=== PATIENT | male | born 1945 | race Caucasian/White ===

== ENCOUNTER 2017-10-24 11:41 | Inpatient (IN) | payer MEDICARE ==
[~2017-10-24] VITALS: Ht 180.3 cm; Wt 126.3 kg
[2017-10-24] MEDS ORDERED: MULTIVITAMIN1 CTB PO (12:03)
[2017-10-24] MEDS ORDERED: ASPIRIN 81M81 MG/TA2 PO (12:03)
[2017-10-24] MEDS ORDERED: GLUCOPHAGE500 MG/TAB PO (12:03)
[2017-10-24] MEDS ORDERED: DEMADEX 20MG20 M1 PO (12:04)
[2017-10-24] MEDS ORDERED: LIPITOR 80MG80 MG PO (12:04)
[2017-10-24] MEDS ORDERED: VITAMIN D31000 I1 PO (12:04)
[2017-10-24] MEDS ORDERED: ENTRESTO 49 MG1 EACH PO (12:05)
[2017-10-24] MEDS ORDERED: ELIQUIS 5MG PO (12:05)
[2017-10-24] MEDS ORDERED: JARDIANCE10 PO (12:05)
[2017-10-24 12:11] LABS: BASO % 0.5 % (0.0-2.0); EOS # 0.2 (0.0-0.7); EOS % 2.2 % (0-4.0); GRAN # 6.6 (1.4-6.5); GRAN % 75.7 % (42.2-75.2); HEMOGLOBIN 15.6 g/dl (13.5-18.0); LYMPH # 1.3 (1.2-3.4); LYMPH % 14.9 % (20.0-51.0); MEAN CELL VOLUME 99 fl (80.0-100.0); MEAN CORPUSCULAR HEMOGLOBIN 33 pg (27.0-31.0); MEAN CORPUSCULAR HGB CONC 34 g/dl (33.0-37.0); MEAN PLATELET VOLUME 11.3 fl (7.4-10.4); MONO # 0.5 (0.1-0.6); MONO % 6.2 % (1.7-9.3); PLATELET COUNT 147 K/mm3 (130-400); RED BLOOD COUNT 4.67 M/mm3 (4.20-5.60)
[2017-10-24] MEDS ORDERED: COREG 25MG25 MG/TAB PO ×2 (12:21→20:22)
[2017-10-24 12:23] LABS: ALBUMIN 4.2 gm/dL (3.5-5.0); BILIRUBIN,TOTAL 1.9 mg/dL (0.0-1.0); CALCIUM 8.9 mg/dL (8.4-10.2); CREATININE, serum 1.53 mg/dL (0.66-1.25); POTASSIUM 4.2 mmol/L (3.4-5.0); TOTAL PROTEIN 7.4 gm/dL (6.4-8.2)
[2017-10-24 12:32] LABS: INR 1.1 (0.8-3.0); PROTHROMBIN TIME 12.9 SECONDS (9.7-12.8)
[2017-10-24 12:34] LABS: PARTIAL THROMBOPLASTIN TIME 35.8 SECONDS (26.0-37.0)
[2017-10-24 12:36] LABS: TROPONIN-I 0.114 ng/mL (0.000-0.034)
[2017-10-24 12:52] LABS: THYROID STIMULATING HORMONE 0.137 uIU/mL (0.465-4.680)
[2017-10-24 20:09] VITALS: BP 128/85; PULSE 122; TEMP 98
[2017-10-25] VITALS (10 sets, daily range): BP systolic 94–126; BP diastolic 58–83; PULSE 69–123; TEMP 97.6–100.3
[2017-10-25 05:36] LABS: BASO % 0.4 % (0.0-2.0); EOS # 0.2 (0.0-0.7); GRAN # 5.7 (1.4-6.5); GRAN % 75.5 % (42.2-75.2); HEMATOCRIT 41.5 % (42.0-52.0); LYMPH # 1.1 (1.2-3.4); LYMPH % 14.5 % (20.0-51.0); MEAN CELL VOLUME 101 fl (80.0-100.0); MEAN CORPUSCULAR HEMOGLOBIN 33 pg (27.0-31.0); MEAN CORPUSCULAR HGB CONC 33 g/dl (33.0-37.0); MEAN PLATELET VOLUME 11.1 fl (7.4-10.4); MONO # 0.6 (0.1-0.6); MONO % 7.2 % (1.7-9.3); PLATELET COUNT 114 K/mm3 (130-400); RED BLOOD COUNT 4.11 M/mm3 (4.20-5.60); REDCELL DISTRIBUTION WIDTH-CV 14.2 % (11.5-14.5)
[2017-10-25 05:39] LABS: HEMOGLOBIN 13.5 g/dl (13.5-18.0)
[2017-10-25 05:46] LABS: CALCIUM 8.4 mg/dL (8.4-10.2); CHOLESTEROL RISK RATIO 3.7; CREATININE, serum 1.4 mg/dL (0.66-1.25); POTASSIUM 3.9 mmol/L (3.4-5.0)
[2017-10-25 05:57] LABS: TROPONIN-I 0.15 ng/mL (0.000-0.034)
[2017-10-26 00:34] VITALS: BP 111/55; PULSE 71; TEMP 99.7
[2017-10-26 04:04] VITALS: BP 109/51; PULSE 70; TEMP 98.8
[2017-10-26 06:09] LABS: BASO % 0.4 % (0.0-2.0); EOS # 0.1 (0.0-0.7); GRAN # 5.3 (1.4-6.5); GRAN % 72.6 % (42.2-75.2); HEMATOCRIT 37.4 % (42.0-52.0); HEMOGLOBIN 12.5 g/dl (13.5-18.0); LYMPH # 1.2 (1.2-3.4); LYMPH % 15.9 % (20.0-51.0); MEAN CELL VOLUME 100 fl (80.0-100.0); MEAN CORPUSCULAR HEMOGLOBIN 33 pg (27.0-31.0); MEAN CORPUSCULAR HGB CONC 33 g/dl (33.0-37.0); MEAN PLATELET VOLUME 11.3 fl (7.4-10.4); MONO # 0.7 (0.1-0.6); MONO % 9.8 % (1.7-9.3); PLATELET COUNT 103 K/mm3 (130-400); RED BLOOD COUNT 3.74 M/mm3 (4.20-5.60); REDCELL DISTRIBUTION WIDTH-CV 14.3 % (11.5-14.5)
[2017-10-26 06:27] LABS: CREATININE, serum 1.23 mg/dL (0.66-1.25); POTASSIUM 3.5 mmol/L (3.4-5.0)
[2017-10-26 08:41] VITALS: BP 110/54; PULSE 74; TEMP 98.2
[2017-10-26 11:58] LABS: MUCOUS Present /lpf; PH 5 (5-8); SQUAMOUS EPITHELIAL 0-2 /hpf; URINE APPEARANCE Clear; URINE BACTERIA None Seen /hpf; URINE BILIRUBIN Negative (NEGATIVE); URINE BLOOD Negative (NEGATIVE); URINE COLOR Yellow; URINE GLUCOSE 3+ (NEGATIVE); URINE KETONE Negative (NEGATIVE); URINE LEUKOCYTE ESTERASE Negative (NEGATIVE); URINE NITRATE Negative (NEGATIVE); URINE PROTEIN(semi-quant) Negative (NEGATIVE); URINE RBC 0-2 /hpf; URINE WBC 0-2 /hpf
[2017-10-26 12:02] LABS: COLLECTION METHOD CLEAN CATCH
[2017-10-26 12:19] VITALS: BP 112/55; PULSE 70; TEMP 98.2
[2017-10-26] MEDS ORDERED: COREG 25MG25 MG/TAB PO (13:41)
[2017-10-26] MEDS ORDERED: BETAPACE 120MG120 MG PO (13:42)
== END 2017-10-26 15:20 | disposition home or self-care (01) | DRG 309 ==
LOC: COL.ER 11:41 → ICU 15:18 → MEDICAL 10-25 13:30 → ICU 10-25 13:30 → MEDICAL 10-25 13:31
PROVIDERS: Family Medicine
PROC: 5A2204Z Restoration of Cardiac Rhythm, Single (ICD-10-PCS; principal; 2017-10-25)
DX: I48.92 Unspecified atrial flutter (principal); N17.9 Acute kidney failure, unspecified; I48.0 Paroxysmal atrial fibrillation; I25.5 Ischemic cardiomyopathy; I25.10 Atherosclerotic heart disease of native coronary artery without angina pectoris; E11.9 Type 2 diabetes mellitus without complications; D69.6 Thrombocytopenia, unspecified; Z95.1 Presence of aortocoronary bypass graft; Z95.5 Presence of coronary angioplasty implant and graft; Z95.810 Presence of automatic (implantable) cardiac defibrillator
CPT/HCPCS: OP; J1815; J2704; J7050

== ENCOUNTER → 2017-11-30 | Outpatient (CLI) | payer MEDICARE ==
[~2017-11-30] MED LIST: ASPIRIN 81M81 MG/TA2 PO; BETAPACE 120MG120 MG PO; COREG 25MG25 MG/TAB PO; DEMADEX 20MG20 M1 PO; ELIQUIS 5MG PO; ENTRESTO 49 MG1 EACH PO; GLUCOPHAGE500 MG/TAB PO; JARDIANCE10 PO; LIPITOR 80MG80 MG PO; MULTIVITAMIN1 CTB PO; VITAMIN D31000 I1 PO
== END ==
LOC: COL.RAD 13:37
DX: E05.90 Thyrotoxicosis, unspecified without thyrotoxic crisis or storm (principal)
CPT/HCPCS: A9516

== ENCOUNTER 2018-03-07 15:06 | Inpatient (IN) | payer MEDICARE ==
[~2018-03-07] VITALS: Wt 127.3 kg
[2018-03-07 17:56] LABS: BASO # 0.1 (0.0-0.2); BASO % 0.3 % (0.0-2.0); EOS # 0.6 (0.0-0.7); EOS % 3.9 % (0-4.0); GRAN # 12.3 (1.4-6.5); GRAN % 81.5 % (42.2-75.2); HEMATOCRIT 42.3 % (42.0-52.0); LYMPH # 1.1 (1.2-3.4); LYMPH % 7.5 % (20.0-51.0); MEAN CELL VOLUME 96 fl (80.0-100.0); MEAN CORPUSCULAR HEMOGLOBIN 32 pg (27.0-31.0); MEAN CORPUSCULAR HGB CONC 33 g/dl (33.0-37.0); MEAN PLATELET VOLUME 11.4 fl (7.4-10.4); MONO # 0.9 (0.1-0.6); MONO % 6.1 % (1.7-9.3); PLATELET COUNT 224 K/mm3 (130-400); RED BLOOD COUNT 4.41 M/mm3 (4.20-5.60)
[2018-03-07 18:06] LABS: ALBUMIN 3.6 gm/dL (3.5-5.0); BILIRUBIN,TOTAL 1.3 mg/dL (0.0-1.0); CALCIUM 8.9 mg/dL (8.4-10.2); CREATININE, serum 1.29 mg/dL (0.66-1.25); POTASSIUM 3.9 mmol/L (3.4-5.0)
[2018-03-07] MEDS ORDERED: PROAIR HFA0.09 MG/AC IH (18:13)
--- NOTE | 2018-03-07 18:44 | NUR ---
Admission assessment completed, alert/oriented, vital signs stable, denies pain, persistent cough for 6 weeks, we have placed him in 341 for negative isolation to r/o TB, right lung [place] coarse/ bases diminished, cough is non-productive, heart RRR/distal pulses are palpable, meds reconciled, allergies reviewed, IV started to left forearm, present in the room, he denies needs at this time
[2018-03-07 20:00] VITALS: BP 143/62; PULSE 72; TEMP 99.3
--- NOTE | 2018-03-07 20:00 | NUR ---
PT IN NEGATIVE PRESSURE ROOM. AIRBORNE ISOLATION. PT HAS PERSISTENT DRY HACKY COUGH. PT RELATES OCCASIONALLY HAS SPUTUM. TEMP 99.3 ORALLY. REVIEWED AND ORIENTED TO ROOM. CALL LIGHT IN REACH. INDEPENDENT IN ROOM. STEADY ON FEET.
[2018-03-07 21:00] VITALS: BP 143/62; PULSE 70; TEMP 99.3
[2018-03-08] VITALS (8 sets, daily range): BP systolic 96–135; BP diastolic 42–85; PULSE 61–100; TEMP 97.7–98.3
[2018-03-08 00:27] LABS: PROCALCITONIN 0.11 ng/mL (0.00-0.09)
--- NOTE | 2018-03-08 04:52 | NUR ---
PT HAS SLEPT FAIRLY WELL. USED OWN CPAP. DENIED NEED FOR COUGH MED. DENIES NEEDS.
--- NOTE | 2018-03-08 07:39 | NUR ---
Report from HANNAH Guzman. Pt in airborne precautions, glasses and gown in place, needs new gripper socks, INT to LFA, lachelle AHA diet well, denies nausea/SOA/dizziness/numbness, is passing gas, on room air. TELE in place. Call light in reach. VSS. Awake, A&O pleasantly cooperative. Reports sweating last night, states he wore his CPAP, has slight cough, pt states it is clear-white sticky phlegm.
[2018-03-08 08:25] LABS: HEMATOCRIT 44.4 % (42.0-52.0); HEMOGLOBIN 14.6 g/dl (13.5-18.0); MEAN CELL VOLUME 96 fl (80.0-100.0); MEAN CORPUSCULAR HEMOGLOBIN 32 pg (27.0-31.0); MEAN CORPUSCULAR HGB CONC 33 g/dl (33.0-37.0); MEAN PLATELET VOLUME 10.9 fl (7.4-10.4); PLATELET COUNT 225 K/mm3 (130-400); RED BLOOD COUNT 4.62 M/mm3 (4.20-5.60)
[2018-03-08 08:35] LABS: CALCIUM 9.2 mg/dL (8.4-10.2); CREATININE, serum 1.02 mg/dL (0.66-1.25); POTASSIUM 4.3 mmol/L (3.4-5.0)
[2018-03-08 08:51] LABS: LYMPHOCYTE 4 % (20.0-51.0); NEUTROPHILS 93 % (42.0-75.2); PLATELET ESTIMATE NORMAL (NORMAL)
--- NOTE | 2018-03-08 11:25 | NUR ---
SW attended clinical rounding and met with patient to discuss discharge planning. Patient lives in [place] independently with his Eugenia. His PCP is Dr Shirin Alvarado and he obtains his medications from [facility] in . Patient reports he has a DPOA completed at home. There are no current DC needs at this time however DIANA will continue to follow.
--- NOTE | 2018-03-08 11:41 | NUR ---
Pt lachelle indep in rm with gripper socks in place. Orders meals independently. Glasses in place, call light in reach. Denies pain.
--- NOTE | 2018-03-08 16:25 | NUR ---
Attempted two IV restarts without success. Asked another nurse to try.
--- NOTE | 2018-03-08 18:35 | NUR ---
Pt indep in rm, sitting on side of bed for supper, gripper socks in place. Requested water for his CPAP, will provide.
--- NOTE | 2018-03-08 20:00 | NUR ---
PT RESTING IN BED. STILL AIRBORNE ISOLATION. PT DENIES COMPLAINTS. DRY HACKY PERSISTENT COUGH. LEVAQUIN RUNNING TO RT WRIST IV. SITE CLEAR. CALL LIGHT IN REACH.
--- NOTE | 2018-03-08 23:10 | NUR ---
PT COUGHED UP WHAT LOOKS TO BE SMALL HARD FOOD PARTICLE- CORN OR PEA LIKE FROM HIS LUNG. STILL HAS DRY HACKY COUGH WITH OCCASIOANL SPUTUM PRODUCTION.
[2018-03-09] VITALS (7 sets, daily range): BP systolic 93–120; BP diastolic 44–70; PULSE 69–79; TEMP 97.6–98.5
--- NOTE | 2018-03-09 00:51 | NUR ---
PT SEEMS TO BE COUGH MORE AND HAS MORE PRODUCTION OF SPUTUM SINCE HE COUGH UP THE PEA SIZE FOOD PARTICLE. SEE MAR FOR COUGH SYRUP GIVEN. PROVIDED WARM TEA ALSO. DENIES DYSPNEA OR PAIN.
--- NOTE | 2018-03-09 03:01 | NUR ---
PT C/O CONTIUED COUGH. LUNG SOUNDS UNCHANGED. DIM LT SIDE. SPUTUM STILL THICK STRONG. NOTIFIED RT FOR SVN TX.
--- NOTE | 2018-03-09 04:00 | NUR ---
PT BREATHING BETTER. RT TX HELPING THE COUGH. LESS SEVERE COUGH. ABLE TO REST ALITTLE.
[2018-03-09 06:15] LABS: HEMATOCRIT 42.8 % (42.0-52.0); HEMOGLOBIN 13.8 g/dl (13.5-18.0); MEAN CELL VOLUME 96 fl (80.0-100.0); MEAN CORPUSCULAR HEMOGLOBIN 31 pg (27.0-31.0); MEAN CORPUSCULAR HGB CONC 32 g/dl (33.0-37.0); MEAN PLATELET VOLUME 11.5 fl (7.4-10.4); PLATELET COUNT 251 K/mm3 (130-400); RED BLOOD COUNT 4.45 M/mm3 (4.20-5.60)
[2018-03-09 06:22] LABS: CREATININE, serum 1.2 mg/dL (0.66-1.25); POTASSIUM 4.3 mmol/L (3.4-5.0)
--- NOTE | 2018-03-09 06:33 | NUR ---
ACCUCHECK TRENDING UP. 272 THIS AM. SEE MAR FOR SSI. PT COUGHING BUT LESS INTENSE.
--- NOTE | 2018-03-09 07:18 | NUR ---
Report from HANNAH Guzman, who states pt had restless night d/t coughing spells. Pt asleep in bed at this time. Airborne isolation precautions in place.
[2018-03-09 08:02] LABS: BAND 5 % (0-10); LYMPHOCYTE 4 % (20.0-51.0); NEUTROPHILS 89 % (42.0-75.2); PLATELET ESTIMATE NORMAL (NORMAL)
--- NOTE | 2018-03-09 09:34 | NUR ---
Pt reports eating good breakfast, not sleeping well, coughing more frequently, robitussin given.
[2018-03-09 13:23] LABS: QUANTIFERON TB GOLD Negative (Negative)
--- NOTE | 2018-03-09 13:37 | NUR ---
Pt c/o differences in POC from different Dr.s. Listened to concerns and then pt content. visiting. Sputum collection cup at bedside. Coughing more today. Pt took bath this morning and provided him with clean gown and linens changed.
--- NOTE | 2018-03-09 19:18 | NUR ---
Pt off isolation precautions per Rosemarie dip stand loader. Bedside report to HANNAH Bruno. Pt denies nausea, diarrhea, dizziness.
--- NOTE | 2018-03-09 19:35 | NUR ---
PT COUGHING AT THIS TIME. NON-PRODUCTIVE.
--- NOTE | 2018-03-09 20:00 | NUR ---
Patient in bed resting. Alert and oriented x3. Shift assessment complete. INT to right forarm. Patient denies pain at this time. Denies further needs at this time. Call light in reach.
[2018-03-10 03:50] VITALS: BP 112/56; PULSE 71; TEMP 97.5
--- NOTE | 2018-03-10 06:38 | NUR ---
Patient has rested well through the night, minimal needs. Has home CPAP on through the night. Continues to deny pain. Denies further needs at this time. Will report off to day shift.
[2018-03-10 07:05] LABS: BASO % 0.1 % (0.0-2.0); EOS # 0.1 (0.0-0.7); EOS % 0.7 % (0-4.0); GRAN # 12.5 (1.4-6.5); GRAN % 83.3 % (42.2-75.2); HEMATOCRIT 43.3 % (42.0-52.0); HEMOGLOBIN 13.8 g/dl (13.5-18.0); LYMPH # 1.4 (1.2-3.4); MEAN CELL VOLUME 97 fl (80.0-100.0); MEAN CORPUSCULAR HEMOGLOBIN 31 pg (27.0-31.0); MEAN CORPUSCULAR HGB CONC 32 g/dl (33.0-37.0); MEAN PLATELET VOLUME 11.1 fl (7.4-10.4); MONO # 0.9 (0.1-0.6); MONO % 5.9 % (1.7-9.3); PLATELET COUNT 223 K/mm3 (130-400); RED BLOOD COUNT 4.47 M/mm3 (4.20-5.60); REDCELL DISTRIBUTION WIDTH-CV 14.3 % (11.5-14.5)
[2018-03-10 07:13] LABS: CALCIUM 8.8 mg/dL (8.4-10.2); CREATININE, serum 1.52 mg/dL (0.66-1.25); POTASSIUM 4.5 mmol/L (3.4-5.0)
[2018-03-10 07:57] VITALS: BP 107/65; PULSE 68; TEMP 97.2
[2018-03-10 12:37] VITALS: BP 103/65; PULSE 71; TEMP 97.7
[2018-03-10 13:20] LABS: MUCOUS Present /lpf; PH 5 (5-8); SQUAMOUS EPITHELIAL None Seen /hpf; URINE APPEARANCE Clear; URINE BACTERIA None Seen /hpf; URINE BILIRUBIN Negative (NEGATIVE); URINE BLOOD Negative (NEGATIVE); URINE COLOR Yellow; URINE GLUCOSE 2+ (NEGATIVE); URINE KETONE Negative (NEGATIVE); URINE LEUKOCYTE ESTERASE Negative (NEGATIVE); URINE NITRATE Negative (NEGATIVE); URINE PROTEIN(semi-quant) Negative (NEGATIVE); URINE RBC 0-2 /hpf; URINE UROBILINOGEN Negative (NEGATIVE)
--- NOTE | 2018-03-10 14:26 | NUR ---
Patient had his Right wrist IV DC'd due to it leaking. Started 22 G to Rt AC with no difficulties, patient currently on IV fluids per Dr. Carlin. See new orders. Patient's here visiting, denied questions at this time.
--- NOTE | 2018-03-10 16:03 | NUR ---
Patient currently taking a shower in the [facility] shower room. Patient is independent on all his cares. He also shaved himself. Will continue to monitor.
[2018-03-10 16:35] VITALS: BP 114/60; PULSE 61; TEMP 98
[2018-03-10 18:35] LABS: COLLECTION METHOD CLEAN CATCH
--- NOTE | 2018-03-10 21:00 | NUR ---
Patient is alert and oriented x4. Has IVF to right AC at 75cc/hr infusing without redness or swelling. Is on room air, using CPAP at night. GV=896io/dl, on Levemir 18units at HS. Lungs diminished on right, productive cough of white phlegm. Denies pain. Up to BR with steady gait. Will monitor for changes.
[2018-03-10 21:26] VITALS: BP 127/65; PULSE 70; TEMP 97.7
[2018-03-11] VITALS (7 sets, daily range): BP systolic 94–128; BP diastolic 41–78; PULSE 70–100; TEMP 97.5–98.3
--- NOTE | 2018-03-11 06:00 | NUR ---
Reports no concerns this AM. BS=99mg/dl. IV fluids infusing without problem.
--- NOTE | 2018-03-11 08:02 | NUR ---
Patient resting in bed at this time, call light in reach and slip proof socks are on. Patient in pleasent mood stating, "I slept like a baby." Tolerating diet well eating 100%. Denies pain this morning. Takes pills whole. Will continue to monitor.
[2018-03-11 08:07] LABS: BASO % 0.2 % (0.0-2.0); EOS # 0.4 (0.0-0.7); EOS % 3.4 % (0-4.0); GRAN # 10.3 (1.4-6.5); GRAN % 79.5 % (42.2-75.2); HEMATOCRIT 46.1 % (42.0-52.0); HEMOGLOBIN 14.7 g/dl (13.5-18.0); LYMPH # 1.1 (1.2-3.4); LYMPH % 8.6 % (20.0-51.0); MEAN CELL VOLUME 99 fl (80.0-100.0); MEAN CORPUSCULAR HEMOGLOBIN 31 pg (27.0-31.0); MEAN CORPUSCULAR HGB CONC 32 g/dl (33.0-37.0); MONO % 7.7 % (1.7-9.3); PLATELET COUNT 241 K/mm3 (130-400); RED BLOOD COUNT 4.68 M/mm3 (4.20-5.60); REDCELL DISTRIBUTION WIDTH-CV 14.3 % (11.5-14.5)
[2018-03-11 08:18] LABS: CALCIUM 8.7 mg/dL (8.4-10.2); CREATININE, serum 1.28 mg/dL (0.66-1.25); MAGNESIUM 2.3 mg/dL (1.6-2.3)
--- NOTE | 2018-03-11 14:55 | NUR ---
Currently independent with shower and does his own grooming independently. Denies pain or questions at this time. Will continue to monitor.
--- NOTE | 2018-03-11 19:34 | NUR ---
Patient was seen by Dr. Carlin this morning. See new orders to DC IV Fluids and changed accuchecks from Q 6Hrs to ACHS. Paitient was independent with taking a shower this afternoon. Tolerating his meals well. Not coughing as much today as yesterday. Denied pain this shift. Had visitors today. Will continue to monitor.
--- NOTE | 2018-03-11 21:30 | NUR ---
Patient awake, antibiotic Levaquin finished, IV site to right AC without redness or swelling. Accucheck 218mg/dl at HS requiring 6 units of Humalog insulin. Is alert and oriented. Lungs sound remain diminished to the right side. NPC. Denies pain. Up independently in the room.
[2018-03-12 00:30] VITALS: BP 96/41; PULSE 70; TEMP 98
[2018-03-12 04:41] VITALS: BP 125/55; PULSE 70; TEMP 98.1
--- NOTE | 2018-03-12 05:51 | NUR ---
No concerns offered during the night. Telemetry with APaced rhythm.
[2018-03-12 08:26] VITALS: BP 127/56; PULSE 70; TEMP 98.4
[2018-03-12 08:37] LABS: BASO % 0.1 % (0.0-2.0); EOS # 0.4 (0.0-0.7); GRAN # 7.5 (1.4-6.5); GRAN % 78.3 % (42.2-75.2); HEMATOCRIT 42.8 % (42.0-52.0); HEMOGLOBIN 13.8 g/dl (13.5-18.0); LYMPH % 10.1 % (20.0-51.0); MEAN CELL VOLUME 98 fl (80.0-100.0); MEAN CORPUSCULAR HEMOGLOBIN 31 pg (27.0-31.0); MEAN CORPUSCULAR HGB CONC 32 g/dl (33.0-37.0); MEAN PLATELET VOLUME 10.8 fl (7.4-10.4); MONO # 0.7 (0.1-0.6); MONO % 6.9 % (1.7-9.3); PLATELET COUNT 178 K/mm3 (130-400); RED BLOOD COUNT 4.39 M/mm3 (4.20-5.60); REDCELL DISTRIBUTION WIDTH-CV 14.3 % (11.5-14.5)
[2018-03-12 08:48] LABS: CALCIUM 8.5 mg/dL (8.4-10.2); CREATININE, serum 1.12 mg/dL (0.66-1.25); POTASSIUM 4.4 mmol/L (3.4-5.0)
--- NOTE | 2018-03-12 10:30 | NUR ---
PATIENT AMBULATING IN HALLWAY INDEPENDENTLY
[2018-03-12 11:29] VITALS: BP 125/65; PULSE 70; TEMP 97.9
[2018-03-12 15:50] VITALS: BP 123/50; PULSE 70; TEMP 98.3
[2018-03-12 19:40] VITALS: BP 115/58; PULSE 70; TEMP 98.9
--- NOTE | 2018-03-12 20:15 | NUR ---
Patient in bed, watching TV. Is alert and oriented x3. Has NPC tonight. Right lung sounds remain diminished. Denies SOB, pain or nausea. IV Levaquin infusing to right AC SL site without redness or swelling. Offers no concerns at this time.
[2018-03-13 03:14] VITALS: BP 107/63; PULSE 71; TEMP 98.4
--- NOTE | 2018-03-13 05:36 | NUR ---
No concerns offered this shift. Telemetry remains A Paced.
[2018-03-13 06:28] LABS: BASO % 0.2 % (0.0-2.0); EOS # 0.5 (0.0-0.7); EOS % 4.9 % (0-4.0); GRAN # 6.8 (1.4-6.5); HEMATOCRIT 40.7 % (42.0-52.0); LYMPH # 1.2 (1.2-3.4); LYMPH % 13.1 % (20.0-51.0); MEAN CELL VOLUME 98 fl (80.0-100.0); MEAN CORPUSCULAR HEMOGLOBIN 31 pg (27.0-31.0); MEAN CORPUSCULAR HGB CONC 32 g/dl (33.0-37.0); MEAN PLATELET VOLUME 11.4 fl (7.4-10.4); MONO # 0.6 (0.1-0.6); PLATELET COUNT 171 K/mm3 (130-400); RED BLOOD COUNT 4.16 M/mm3 (4.20-5.60); REDCELL DISTRIBUTION WIDTH-CV 14.4 % (11.5-14.5)
[2018-03-13 06:41] LABS: CALCIUM 8.7 mg/dL (8.4-10.2); CREATININE, serum 1.23 mg/dL (0.66-1.25); POTASSIUM 5.1 mmol/L (3.4-5.0)
[2018-03-13 07:38] VITALS: BP 120/64; PULSE 70; TEMP 97.7
[2018-03-13 09:36] VITALS: BP 118/78
--- NOTE | 2018-03-13 09:54 | NUR ---
Patient resting in bed at this time, call light in reach, slip proof socks on and independent in his room. Denies pain at this time. Will continue to monitor.
--- NOTE | 2018-03-13 10:13 | NUR ---
First visit from the ruching machine operator. No needs right now.
[2018-03-13 11:43] VITALS: BP 108/59; PULSE 70; TEMP 97.4
[2018-03-13] MEDS ORDERED: LEVAQUIN 5500 MG/TA1 PO (11:55)
[2018-03-13] MEDS ORDERED: CLEOCIN HCL300 MG PO (11:55)
[2018-03-13] MEDS ORDERED: FLONASE NASAL S16 GM NS (11:57)
--- NOTE | 2018-03-13 13:12 | NUR ---
SW presented patient with IM and verbally discussed the contents. Patient was agreeable and signed the form. Copy denied and original placed in the chart. Patient is discharging home today with family support.
--- NOTE | 2018-03-13 14:27 | NUR ---
Patient Health Summary, Discharge Summary, and home meds printed and reviewed with patient and . Stressed importance of follow up appointments. Belongings gathered by including glasses and phone. Patient transported via wheelchair by HANNAH Vera and seatbelted for ride home with . Patient and denied questions.
[2018-03-15 16:07] LABS: BORDETELLA PERTUSSIS IGG-AMS XXX
== END 2018-03-13 14:30 | disposition home or self-care (01) | DRG 178 ==
LOC: MEDICAL 15:06 → SURG 17:03 → MEDICAL 17:03 → SURG 18:32
PROVIDERS: Internal Medicine; Internal Medicine Infectious Disease; Physician Assistant; ADMIT Internal Medicine
DX: J69.0 Pneumonitis due to inhalation of food and vomit (principal); I50.22 Chronic systolic (congestive) heart failure; N17.9 Acute kidney failure, unspecified; I11.0 Hypertensive heart disease with heart failure; Z23 Encounter for immunization; I25.10 Atherosclerotic heart disease of native coronary artery without angina pectoris; I48.91 Unspecified atrial fibrillation; E11.9 Type 2 diabetes mellitus without complications; J01.00 Acute maxillary sinusitis, unspecified; E78.5 Hyperlipidemia, unspecified; Z95.810 Presence of automatic (implantable) cardiac defibrillator; Z95.1 Presence of aortocoronary bypass graft; Z79.01 Long term (current) use of anticoagulants; Z95.5 Presence of coronary angioplasty implant and graft; Z87.891 Personal history of nicotine dependence; E66.01 Morbid (severe) obesity due to excess calories; G47.33 Obstructive sleep apnea (adult) (pediatric)
CPT/HCPCS: 99223-AI; 99231-AI; 99232-AI; 99233-AI; 99239; A4216; J0692; J1815; J1956; J2920; J7030

== ENCOUNTER → 2018-03-16 | Outpatient (CLI) | payer MEDICARE ==
[~2018-03-16] MED LIST changes: +CLEOCIN HCL300 MG PO; +FLONASE NASAL S16 GM NS; +LEVAQUIN 5500 MG/TA1 PO; +PROAIR HFA0.09 MG/AC IH
== END ==
LOC: ZCOL.LAB 16:39
DX: J32.9 Chronic sinusitis, unspecified (principal)

== ENCOUNTER → 2018-05-24 | Outpatient (CLI) | payer MEDICARE | LOC: COL.RAD 13:18 | DX: J18.1 Lobar pneumonia, unspecified organism (principal); Z95.1 Presence of aortocoronary bypass graft ==

== ENCOUNTER 2018-09-26 14:37 | Emergency (ER) | payer MEDICARE ==
[~2018-09-26] VITALS: Ht 180.3 cm; Wt 127.3 kg
[2018-09-26 14:47] VITALS: BP 104/51; TEMP 98.8
[2018-09-26] MEDS ORDERED: GLUCOTROL 5M5 MG/TAB PO (15:09)
[2018-09-26] MEDS ORDERED: NORCO 325 MG-51 TAB PO (16:34)
[2018-09-26] MEDS ORDERED: WALKER MC (16:34)
[2018-09-26] MEDS ORDERED: CRUTCHES MC (16:34)
[2018-09-26 17:18] VITALS: PULSE 70
== END 2018-09-26 17:20 | disposition home or self-care (01) ==
LOC: COL.ER 14:37
DX: S89.91XA Unspecified injury of right lower leg, initial encounter (principal); I10 Essential (primary) hypertension; I25.10 Atherosclerotic heart disease of native coronary artery without angina pectoris; E11.9 Type 2 diabetes mellitus without complications; E78.5 Hyperlipidemia, unspecified; I50.9 Heart failure, unspecified; E66.9 Obesity, unspecified; Z87.891 Personal history of nicotine dependence; Z95.1 Presence of aortocoronary bypass graft; Z79.01 Long term (current) use of anticoagulants; Z79.51 Long term (current) use of inhaled steroids; Z79.82 Long term (current) use of aspirin; Z79.84 Long term (current) use of oral hypoglycemic drugs; Z68.39 Body mass index [BMI] 39.0-39.9, adult; W08.XXXA Fall from other furniture, initial encounter
CPT/HCPCS: L1846

== ENCOUNTER → 2018-11-12 | Outpatient (CLI) | payer MEDICARE ==
[~2018-11-12] MED LIST changes: +CRUTCHES MC; +GLUCOTROL 5M5 MG/TAB PO; +NORCO 325 MG-51 TAB PO; +WALKER MC
== END ==
LOC: COL.RAD 10-31 09:45
DX: Z13.6 Encounter for screening for cardiovascular disorders (principal)

== ENCOUNTER → 2019-09-09 | Outpatient (CLI) | payer MEDICARE | LOC: COL.RAD 06:57 | DX: K76.0 Fatty (change of) liver, not elsewhere classified (principal); N28.1 Cyst of kidney, acquired; E80.7 Disorder of bilirubin metabolism, unspecified | CPT/HCPCS: Q9967 ==

== ENCOUNTER 2020-02-13 12:49 | Day surgery (SDC) | payer MEDICARE ==
[~2020-02-13] VITALS: Ht 180.3 cm; Wt 128.2 kg
[2020-02-13 13:56] VITALS: BP 138/81; PULSE 70; TEMP 98.3
[2020-02-13] MEDS ORDERED: GLUCOPHAGE500 MG/TAB PO (14:26)
[2020-02-13] MEDS ORDERED: GLUCOTROL10 MG PO (14:31)
[2020-02-13] MEDS ORDERED: ELIQUIS 5MG PO (14:34)
[2020-02-13] MEDS ORDERED: LIPITOR 80MG80 MG PO (14:34)
[2020-02-13] MEDS ORDERED: ALEVE 220MG220 MG PO (14:36)
[2020-02-13] MEDS ORDERED: TAPAZOLE5 MG PO (14:36)
[2020-02-13 16:51] VITALS: TEMP 97.8
[2020-02-13 17:01] VITALS: BP 124/61; PULSE 69
--- NOTE | 2020-02-13 17:01 | NUR ---
Patient returns to room 5 per cart and is awake and alert. Temp 98.7 and room air sats 96%. IV fluids infusing and denies pain or nausea. Drinking water and eating muffin. Siderails up x2 and call light in reach.
[2020-02-13 17:16] VITALS: BP 120/64; PULSE 70
--- NOTE | 2020-02-13 17:16 | NUR ---
Room air sats 97%. Tolerated muffin and water.
[2020-02-13 17:31] VITALS: BP 126/71; PULSE 71
--- NOTE | 2020-02-13 17:31 | NUR ---
IV to INT. Assisted to the bathroom. Gait steady. Returns to room after voiding pink urine. INT discontinued. Site clear.
--- NOTE | 2020-02-13 17:35 | NUR ---
Patient is dressing self.
--- NOTE | 2020-02-13 17:41 | NUR ---
Dismissal instructions given and voices understanding of these. Patient dismissed to home driven by spouse and taken to the emergency room entrance by this RN and assisted into vehicle with instructions in hand.
== END 2020-02-13 17:41 | disposition home or self-care (01) ==
LOC: SDCO 12:49
DX: N28.1 Cyst of kidney, acquired (principal); I13.0 Hypertensive heart and chronic kidney disease with heart failure and stage 1 through stage 4 chronic kidney disease, or unspecified chronic kidney disease; I25.10 Atherosclerotic heart disease of native coronary artery without angina pectoris; E78.00 Pure hypercholesterolemia, unspecified; E78.5 Hyperlipidemia, unspecified; I50.9 Heart failure, unspecified; I25.2 Old myocardial infarction; I48.91 Unspecified atrial fibrillation; G47.33 Obstructive sleep apnea (adult) (pediatric); M19.90 Unspecified osteoarthritis, unspecified site; E11.22 Type 2 diabetes mellitus with diabetic chronic kidney disease; N18.9 Chronic kidney disease, unspecified; D63.1 Anemia in chronic kidney disease; E03.9 Hypothyroidism, unspecified; Z95.1 Presence of aortocoronary bypass graft; Z79.01 Long term (current) use of anticoagulants; Z79.84 Long term (current) use of oral hypoglycemic drugs; Z87.891 Personal history of nicotine dependence; Z79.82 Long term (current) use of aspirin; Z95.5 Presence of coronary angioplasty implant and graft; Z20.828 Contact with and (suspected) exposure to other viral communicable diseases
CPT/HCPCS: C1769; J0690; J2405; J2704; J3010; J7030; Q9967

== ENCOUNTER 2021-11-15 11:32 | Observation (INO) | payer MEDICARE ==
[~2021-11-15] VITALS: Ht 177.8 cm; Wt 127.9 kg
[~2021-11-15 11:32] MED LIST changes: -COREG12.5 MG PO; -TYLENOL 500MG500 MG PO; -ZETIA 10MG TAB10 MG PO
[2021-11-15 12:06] LABS: BASO % 0.3 % (0.0-2.0); EOS % 0.4 % (0.0-4.0); GRAN # 8.3 K/mm3 (1.4-6.5); GRAN % 81.8 % (42.2-75.2); HEMATOCRIT 40.5 % (42.0-52.0); LYMPH # 0.9 K/mm3 (1.2-3.4); LYMPH % 8.6 % (20.0-51.0); MEAN CELL VOLUME 102 fl (80.0-100.0); MEAN CORPUSCULAR HEMOGLOBIN 33 pg (27-31); MEAN CORPUSCULAR HGB CONC 32 g/dl (33.0-37.0); MEAN PLATELET VOLUME 11.8 fl (7.4-10.4); MONO # 0.9 K/mm3 (0.1-0.6); MONO % 8.6 % (1.7-9.3); PLATELET COUNT 145 K/mm3 (130-400); RED BLOOD COUNT 3.99 M/mm3 (4.20-5.60); REDCELL DISTRIBUTION WIDTH-CV 15.4 % (11.5-14.5)
[2021-11-15 12:26] LABS: ALBUMIN 3.3 gm/dL (3.4-4.8); BILIRUBIN,TOTAL 2.9 mg/dL (0.2-1.2); CALCIUM 9.3 mg/dL (8.4-10.2); CREATININE, serum 1.65 mg/dL (0.72-1.25); POTASSIUM 4.7 mmol/L (3.5-4.5); TOTAL PROTEIN 7.2 gm/dL (6.2-8.1)
[2021-11-15 12:40] LABS: TROPONIN-I 0.101 ng/mL (0.00-0.033)
[2021-11-15 12:52] LABS: TSH w REFLEX 1.466 uIU/mL (0.350-4.940)
[2021-11-15] MEDS ORDERED: COREG12.5 MG PO (15:51)
[2021-11-15] MEDS ORDERED: ZETIA 10MG TAB10 MG PO (15:57)
[2021-11-15] MEDS ORDERED: TYLENOL 500MG500 MG PO (15:57)
[2021-11-15 16:00] VITALS: BP 135/55; PULSE 55; TEMP 98.2
[2021-11-15 19:11] VITALS: BP 147/55; PULSE 40; PULSE 85; TEMP 98.3
--- NOTE | 2021-11-15 19:35 | NUR ---
Patient resting in bed. Assesement & med rec completed. Patient He tolerated his meal, minmal complaints. He is aware he will be NPO at midnight & no caffiene. Int. at bedside. Bedside report to Sophia.
--- NOTE | 2021-11-15 22:05 | NUR ---
PATIENT IN BED ON ROOM ENTRY. ALERT AND ORIENTED. AMBULATED INDEPENDENTLY TO BATHROOM TO VOID. PROVIDED WITH URINAL FOR NIGHT TIME USE. HS MEDS PER EMAR. PATIENT REMAINS ON O2. TO BE NPO AT BASELINE FOR LEXISCAN IN AM. DENIES ADDITIONAL NEEDS. CALL LIGHT IN REACH.
[2021-11-15 23:49] VITALS: BP 135/55; PULSE 78; TEMP 101.4
[2021-11-16] VITALS (12 sets, daily range): BP systolic 117–136; BP diastolic 57–85; PULSE 58–78; TEMP 97.6–99.7
[2021-11-16 00:31] LABS: BASO % 0.4 % (0.0-2.0); EOS # 0.1 K/mm3 (0.0-0.7); EOS % 0.7 % (0.0-4.0); GRAN # 8.3 K/mm3 (1.4-6.5); GRAN % 81.3 % (42.2-75.2); HEMATOCRIT 37.3 % (42.0-52.0); HEMOGLOBIN 12.2 g/dl (13.5-18.0); LYMPH # 0.7 K/mm3 (1.2-3.4); LYMPH % 7.2 % (20.0-51.0); MEAN CELL VOLUME 99 fl (80.0-100.0); MEAN CORPUSCULAR HEMOGLOBIN 32 pg (27-31); MEAN CORPUSCULAR HGB CONC 33 g/dl (33.0-37.0); MEAN PLATELET VOLUME 11.7 fl (7.4-10.4); MONO % 10.1 % (1.7-9.3); PLATELET COUNT 152 K/mm3 (130-400); RED BLOOD COUNT 3.77 M/mm3 (4.20-5.60); REDCELL DISTRIBUTION WIDTH-CV 15.5 % (11.5-14.5)
[2021-11-16 00:45] LABS: CALCIUM 9.2 mg/dL (8.4-10.2); CREATININE, serum 1.6 mg/dL (0.72-1.25); MAGNESIUM 2.3 mg/dL (1.6-2.6); POTASSIUM 4.9 mmol/L (3.5-4.5)
[2021-11-16 02:34] LABS: COLLECTION METHOD CLEAN CATCH
[2021-11-16 02:44] LABS: MUCOUS Present (NOT PRESENT); SQUAMOUS EPITHELIAL None Seen /hpf (0-10); URINE BACTERIA Rare /hpf (NONE SEEN); URINE RBC 0-2 /hpf (0-2)
[2021-11-16 02:45] LABS: URINE APPEARANCE Clear (CLEAR/HAZY); URINE BLOOD TRACE-INTACT (NEGATIVE); URINE COLOR Yellow (YELLOW); URINE GLUCOSE 3+ (NEGATIVE); URINE KETONE 1+ (NEGATIVE); URINE NITRATE Negative (NEGATIVE); URINE PROTEIN(semi-quant) Negative (NEGATIVE)
[2021-11-16 06:13] LABS: BASO % 0.2 % (0.0-2.0); EOS # 0.1 K/mm3 (0.0-0.7); EOS % 0.7 % (0.0-4.0); GRAN # 6.2 K/mm3 (1.4-6.5); GRAN % 73.4 % (42.2-75.2); HEMOGLOBIN 12.3 g/dl (13.5-18.0); LYMPH # 1.1 K/mm3 (1.2-3.4); LYMPH % 13.1 % (20.0-51.0); MEAN CELL VOLUME 101 fl (80.0-100.0); MEAN CORPUSCULAR HEMOGLOBIN 33 pg (27-31); MEAN CORPUSCULAR HGB CONC 32 g/dl (33.0-37.0); MEAN PLATELET VOLUME 11.8 fl (7.4-10.4); MONO % 12.4 % (1.7-9.3); PLATELET COUNT 135 K/mm3 (130-400); RED BLOOD COUNT 3.75 M/mm3 (4.20-5.60); REDCELL DISTRIBUTION WIDTH-CV 15.5 % (11.5-14.5)
[2021-11-16 06:38] LABS: CALCIUM 9.1 mg/dL (8.4-10.2); CREATININE, serum 1.48 mg/dL (0.72-1.25); POTASSIUM 4.5 mmol/L (3.5-4.5)
--- NOTE | 2021-11-16 07:21 | NUR ---
Pt has no complaints at this time. He is aware that he cannot eat ot drink anything at this time due to ordered lexiscan. No questions at this time, call light within reach
--- NOTE | 2021-11-16 08:14 | NUR ---
Pt continues to do well. Pt going off the floor for annaleean
--- NOTE | 2021-11-16 11:04 | NUR ---
Initial visit; Patient states he is doing ok, waiting for test results. Technical Support Director offered God's blessings and will keep him in her prayers. Patient thanked red hat linux administrator for looking in on him.
--- NOTE | 2021-11-16 15:40 | NUR ---
Pt up walking with PT. Pts at bedside. Linens changed at this time. Pt denies any needs, call light left within reach. Pt has been getting up independently in the room and is steady on his feet.
--- NOTE | 2021-11-16 15:43 | NUR ---
repack room worker met with patient to complete intake and discuss discharge plan. Patient reports that he lives at home with his Eugenia ([phone])) in [place]. Eugenia is present at bedside. Patient reports that he is fully independent with his ADL's and does not utilize any DME to assist with mobility. He has no daytime oxygen needs but does use a CPAP at night and gets his supplies through [facility]. PCP is and he utilizes [facility] in [place] for prescriptions. Patient reports that he does have a DPOA-HC established listing his as his decision maker. Patient is planning on returning home once medically ready. Discharge plan: Home with spouse
--- NOTE | 2021-11-17 00:53 | NUR ---
PATIENT ALERT AND ORIENTED X4, INT TO RAC, ON TELE WITH PACED RHYTHM, WEARS CPAP AT THIS TIME, DENIES PAIN, INDEPENDENT IN ROOM, NO FURTHER NEEDS OR CONCERNS AT THIS TIME, CALL LIGHT AND PERSONAL ITEMS WITHIN REACH.
[2021-11-17 03:07] VITALS: BP 131/65; PULSE 75; TEMP 98.3
--- NOTE | 2021-11-17 08:42 | NUR ---
Pt unhappy about being made NPO and not knowing why. Got an update from hospitalist and cardiology of pt now having any procedures today and planning on discharge. Pt was initally refusing all care but is now ok with vital signs and blood sugars to be done. Pt has ordered his breakfast
[2021-11-17 08:47] VITALS: BP 148/75; PULSE 75; TEMP 98.6
[2021-11-17 11:36] VITALS: BP 125/66; PULSE 75; TEMP 98.4
--- NOTE | 2021-11-17 12:20 | NUR ---
Reviewed discharge instructions with pt and his . Both verbalized understanding. No complaints at this time. INT removed from right hand. Informed pt to notify nursing when he is done eating so that he can be escorted out
--- NOTE | 2021-11-17 12:59 | NUR ---
pt escorted out at this time
== END 2021-11-17 13:00 | disposition home or self-care (01) ==
LOC: COL.ER 11:32 → SURG 13:47
PROVIDERS: Emergency Medicine; Physician Assistant; Student in an Organized Health Care Education/Training Program; ADMIT Student in an Organized Health Care Education/Training Program
DX: I25.5 Ischemic cardiomyopathy (principal); I11.0 Hypertensive heart disease with heart failure; I50.22 Chronic systolic (congestive) heart failure; R77.8 Other specified abnormalities of plasma proteins; I25.10 Atherosclerotic heart disease of native coronary artery without angina pectoris; I25.2 Old myocardial infarction; N17.9 Acute kidney failure, unspecified; R17 Unspecified jaundice; E11.9 Type 2 diabetes mellitus without complications; E87.5 Hyperkalemia; D53.9 Nutritional anemia, unspecified; I48.91 Unspecified atrial fibrillation; I48.0 Paroxysmal atrial fibrillation; E78.5 Hyperlipidemia, unspecified; I08.1 Rheumatic disorders of both mitral and tricuspid valves; J45.909 Unspecified asthma, uncomplicated; G47.33 Obstructive sleep apnea (adult) (pediatric); E05.90 Thyrotoxicosis, unspecified without thyrotoxic crisis or storm; Z79.890 Hormone replacement therapy; Z79.84 Long term (current) use of oral hypoglycemic drugs; Z79.01 Long term (current) use of anticoagulants; Z79.899 Other long term (current) drug therapy; Z95.810 Presence of automatic (implantable) cardiac defibrillator; Z87.891 Personal history of nicotine dependence; Z85.828 Personal history of other malignant neoplasm of skin; Z95.5 Presence of coronary angioplasty implant and graft; Z95.1 Presence of aortocoronary bypass graft; Z79.82 Long term (current) use of aspirin
CPT/HCPCS: A9270; A9500; G0378; J1815; J1940; J2785

== ENCOUNTER → 2021-11-15 | Outpatient (CLI) | payer MEDICARE ==
[~2021-11-15] MED LIST changes: +ALEVE 220MG220 MG PO; +COREG12.5 MG PO; +GLUCOTROL10 MG PO; -JARDIANCE10 PO; +JARDIANCE25 PO; +TAPAZOLE5 MG PO; +TYLENOL 500MG500 MG PO; +ZETIA 10MG TAB10 MG PO
[2021-11-15 10:15] LABS: BASO # 0.1 K/mm3 (0.0-0.2); BASO % 0.4 % (0.0-2.0); EOS # 0.1 K/mm3 (0.0-0.7); EOS % 0.4 % (0.0-4.0); GRAN % 83.3 % (42.2-75.2); HEMATOCRIT 41.3 % (42.0-52.0); HEMOGLOBIN 13.4 g/dl (13.5-18.0); LYMPH # 0.8 K/mm3 (1.2-3.4); LYMPH % 6.4 % (20.0-51.0); MEAN CELL VOLUME 100 fl (80.0-100.0); MEAN CORPUSCULAR HEMOGLOBIN 32 pg (27-31); MEAN CORPUSCULAR HGB CONC 32 g/dl (33.0-37.0); MEAN PLATELET VOLUME 12.2 fl (7.4-10.4); MONO # 1.1 K/mm3 (0.1-0.6); MONO % 9.1 % (1.7-9.3); PLATELET COUNT 158 K/mm3 (130-400); RED BLOOD COUNT 4.14 M/mm3 (4.20-5.60); REDCELL DISTRIBUTION WIDTH-CV 15.5 % (11.5-14.5)
[2021-11-15 10:21] LABS: ALBUMIN 3.4 gm/dL (3.4-4.8); BILIRUBIN,TOTAL 3.2 mg/dL (0.2-1.2); CALCIUM 9.5 mg/dL (8.4-10.2); CREATININE, serum 1.78 mg/dL (0.72-1.25); POTASSIUM 4.8 mmol/L (3.5-4.5); TOTAL PROTEIN 7.3 gm/dL (6.2-8.1)
[2021-11-15 10:51] LABS: TROPONIN-I 0.116 ng/mL (0.00-0.033)
[2021-11-15 11:10] LABS: THYROID STIMULATING HORMONE 1.378 uIU/mL (0.350-4.940)
== END ==
LOC: COL.LAB 09:33
PROVIDERS: Internal Medicine
DX: J84.9 Interstitial pulmonary disease, unspecified (principal); I50.22 Chronic systolic (congestive) heart failure